=== PATIENT | female | born 1985 | race Caucasian/White ===

== ENCOUNTER 2019-09-06 18:12 | Emergency (ER) | payer OTHER, SELFPAY ==
--- NOTE | ~2019-09-06 | US_ITS ---
US OB <=14 wk fetus w TV DATE: 09/06/2019 19:56 INDICATION: Vaginal bleeding in gravid patient TECHNIQUE: Real time imaging and doppler analysis COMPARISON: None FINDINGS: The uterus measures 9.7 cm height, 5 cm AP dimension. There is a collection of soft tissue and fluid within the endometrial cavity in the uterine fundus, hyperechoic peripherally, with fluid more centrally. The peripheral echogenicity is heterogeneous and discontinuous. No normal pole is detected nor any heart beat. There is a complicated approximately 6.3 x 8 mm cystic area in the uterine cervix. The constellation of findings suggests a failed intrauterine gestation and an in process. Ovaries and adnexal areas are unremarkable. No pelvic free fluid collection. IMPRESSION: Impending is suggested. Recommend correlation with hCG levels and possible follo w-up ultrasound as clinically appropriate. Reviewed, dictated and finalized at [facility]. Reviewed, dictated and finalized at [facility]. IMPRESSION: Impending is suggested. Recommend correlation with hCG lev els and possible follow-up ultrasound as clinically appropriate.
[2019-09-06 18:14] VITALS: BP 115/55; PULSE 108; RESP 20; TEMP 36.5; O2SAT 100
--- NOTE | 2019-09-06 18:28 | ED.FEMALEGU ---
HPI - Female Genitourinary General Chief complaint: Vaginal Bleeding Stated complaint: 6WKS PREG VAG BLEEDING Time Seen by Provider: 09/06/19 18:20 Source: patient and RN notes reviewed Mode of arrival: ambulatory Limitations: no limitations History of Present Illness HPI Narrative: A 34 y/o female, who is A0 and is also 6 weeks gravid, presents to the ED with vaginal bleeding beginning earlier today. She reports that she first developed suprapubic ABD cramping earlier today before she started to have vaginal bleeding. She states that her LNMP started on 07/22/19 and that she had a positive at home a couple weeks ago. She notes that her OBGYN is Dr. Melendrez but denies seeing them yet during this . She denies any N/V/D or fevers. MD elicited complaint: vaginal bleeding Onset (ago): hour(s) (earlier today) Location of symptoms: vaginal Female Urogenital Radiation: Suprapubic Quality of pain: cramping Associated symptoms: denies other symptoms Patient : Yes Possible : at home test positive Date of Last Menstrual Period: 07/22/19 Related Data : 3 Para: 2 Total number of abortions (spontaneous and elective): 0 Home Medications Medication Instructions Recorded Confirmed PNV cmb#95-ferrous fumarate-FA 1 tablet PO DAILY 09/06/19 [] Allergies Allergy/AdvReac Type Severity Reaction Status Date / Time Cephalosporins Allergy Mild Hives Unverified 09/06/19 18:24 adhesive tape Allergy Unknown Blister Verified 09/06/19 18:24 amoxicillin Allergy Unknown Hives Verified 09/06/19 18:24 cefaclor Allergy Unknown Hives Verified 09/06/19 18:24 Penicillins Allergy Unknown Hives Verified 09/06/19 18:24 Review of Systems Review of Systems: All systems reviewed & are unremarkable except as noted in HPI and below Constitutional: Constitutional: Denies fever(s) Gastrointestinal: Gastrointestinal: Reports GI cramping (suprapubic), Denies diarrhea, Denies nausea and Denies vomiting Genitourinary: Genitourinary: Reports abnormal vaginal bleeding PMF Past Medical History Medical History (Updated 09/06/19 @ 21:20 by Alee Sanders MD) Crohn's disease Hx of ulcerative colitis Surgical History Surgical History (Updated 09/06/19 @ 19:06 by Des Khan) Previous section x2. Family History Family History (Updated 01/21/16 @ 23:19 by DOCTOR UNKNOWN) Father Family history of elevated blood lipids Family history of diabetes mellitus in first degree relative Hypertension Mother Family history of elevated blood lipids Family history of malignant neoplasm of cervix Family history of diabetes mellitus in first degree relative Sibling Family history of elevated blood lipids Family history of diabetes mellitus in first degree relative Grandparent Cerebrovascular accident Family history of coronary artery disease Family history of aortic aneurysm Other Family history of malignant neoplasm of ovary Social History Social History (Updated 09/06/19 @ 19:03 by Des Khan) Smoking status: Never smoker Second hand tobacco smoke exposure: Yes Alcohol intake: never Exam Const: General: cooperative, no acute distress and alert Nutritional Appearance: well nourished Orientation/consciousness: patient oriented x3 Limitations: no limitations HENMT: Mouth: Yes lip normal and Yes moist mucous membranes Resp: Effort & Inspection: normal respiratory effort Auscultation: clear to auscultation bilaterally Cardio: Rate: regular rate Rhythm: regular rhythm GI: GI Palp: Yes Soft to palpation and Yes Tenderness to palpation present (GI) (suprapubic) Auscultation: normal bowel sounds : Speculum Exam - Vagina: normal appearance of the vagina, No vaginal bleeding and No tissue present in vagina Speculum Exam - Cervix: Cervical os closed Skin: General skin exam: normal color Neuro: General: patient oriented x3 Cognition (Neuro): normal cognition Sp
[2019-09-06 18:52] LABS: Basophils Absolute Auto 0.1 K/mm3 (0.0-0.1); Basophils Percent Auto 0.5 % (0.2-1.2); Eosinophils Absolute Auto 0.2 K/mm3 (0-0.3); Eosinophils Percent Auto 1.3 % (0-4.4); Hematocrit 44.5 % (37.0-47.0); Hemoglobin 15.2 g/dL (12.0-15.0); Immature Granulocyte Absolute 0.06 K/mm3 (0.00-0.031); Immature Granulocyte Percent A 0.5 % (0-0.5); Lymphocytes Absolute Auto 2.82 K/mm3 (0.9-3.2); Lymphocytes Percent Auto 23.7 % (18.3-44.2); Mean Corpuscular HGB Conc 34.2 g/dl (32-36); Mean Corpuscular Hemoglobin 32.2 pg (26-34); Mean Corpuscular Volume 94.3 fl (80-100); Mean Platelet Volume 9.2 fl (7.4-10.4); Monocytes Absolute Auto 0.8 K/mm3 (0.1-0.6); Monocytes Percent Auto 6.9 % (2.6-8.5); Neutrophils Percent Auto 67.1 % (45.5-73.1); Platelet Count Result 315 k/mm3 (150-375); Red Blood Count 4.72 M/mm3 (4.2-5.4); Red Cell Distribution Width 11.6 % (11.5-14.5); White Blood Count 11.9 K/mm3 (4.5-10.0)
[2019-09-06 21:31] VITALS: BP 112/60; PULSE 95; RESP 16; O2SAT 98
== END 2019-09-06 21:33 | disposition home or self-care (01) ==
PROVIDERS: Emergency Provider Emergency Medicine; PCP Family Medicine
DX: O03.4 Incomplete spontaneous abortion without complication (principal); K50.90 Crohn's disease, unspecified, without complications
CPT/HCPCS: 36415; 76801; 76817; 81025; 84702; 85025; 99284

== ENCOUNTER 2019-09-08 16:32 | Outpatient (RCR) | payer OTHER, SELFPAY | END 2019-12-07 23:59 | disposition home or self-care (01) | LOC: ANHLAB 16:32 | PROVIDERS: PCP Family Medicine; Visit Provider Obstetrics & Gynecology | DX: O20.0 Threatened abortion (principal); Z3A.00 Weeks of gestation of pregnancy not specified | CPT/HCPCS: 36415; 84702 ==

== ENCOUNTER 2019-10-16 10:51 | Outpatient (CLI) | payer OTHER, SELFPAY ==
--- NOTE | ~2019-10-16 | US_ITS ---
EXAMINATION: US OB <=14 wk fetus w TV DATE: 10/16/2019 11:50 INDICATION: Threatened miscarriage during of indeterminate dating. TECHNIQUE: Real-time pelvic ultrasound utilizing both a transvaginal and transabdominal probe was pe rformed. The interpreting radiologist was not present for the study. COMPARISON: 09/06/2019 FINDINGS: The uterus measures 14.7 x 11.2 x 12.3 cm. There is marked thickening of the endometrial complex. Th ere is a 6.6 x 2.7 x 3.9 cm anechoic fluid collection within the endometrial complex with irregular m argins, with a few internal thin linear septations but no discernible pole. The ovaries are not visualized. There is no free fluid in the pelvis. IMPRESSION: 1. Markedly thickened endometrial complex with interval increase in size of an endometrial fluid hazel ection with linear internal septations but no discernible pole. Differential includes a portion progress, retained products of conception from earlier failed or ectopic . Recomm end correlation with serial beta-hCG levels. Reviewed, dictated and finalized at [facility]. IMPRESSION: 1. Markedly thickened endometrial complex with interval increase in size of an endometrial fluid collection with linear internal septations but no discernible pole. Differential includes a portion progress, retained products of con ception from earlier failed or ectopic . Recommend correlati on with serial beta-hCG levels.
== END 2019-10-16 10:52 | disposition home or self-care (01) ==
LOC: ANHIMG 10:56
PROVIDERS: PCP Family Medicine; Visit Provider Obstetrics & Gynecology
DX: O20.0 Threatened abortion (principal)
CPT/HCPCS: 76801; 76817

== ENCOUNTER 2019-10-20 00:28 | Day surgery (SDC) | payer OTHER, SELFPAY ==
[2019-10-20] MEDS: LACTATED RINGERS 1,000 ML 30 ML IV CONT ×2 (07:25→09:23)
--- NOTE | 2019-10-20 07:25 | WPDANESEPPF ---
Anes - Initial Pre Proc Eval Procedure: Operation Date: 10/20/19 08:30 Proposed Procedures p Suction Dilation And Curettage - Benedicto Melendrez MD Date/Time: 10/20/19 07:25 Surgeon: Benedicto Meelndrez MD Pre Op Diagnosis: Missed AB Patient Data Age: 34 Gender: F Height: Weight: Allergies Allergy/AdvReac Type Severity Reaction Status Date / Time Cephalosporins Allergy Mild Hives Unverified 09/06/19 18:24 adhesive tape Allergy Unknown Blister Verified 09/06/19 18:24 amoxicillin Allergy Unknown Hives Verified 09/06/19 18:24 cefaclor Allergy Unknown Hives Verified 09/06/19 18:24 Penicillins Allergy Unknown Hives Verified 09/06/19 18:24 Home Medications Medication Instructions Recorded Confirmed Type PNV cmb#95-ferrous fumarate-FA 1 tablet PO DAILY 09/06/19 10/17/19 History [] Patient hx anesthesia problems: none Family hx anesthesia problems: none PMFSH Past Medical History Medical History Crohn's disease Hx of ulcerative colitis Surgical History Surgical History Previous section x2. Family History Family History Father Family history of elevated blood lipids Family history of diabetes mellitus in first degree relative Hypertension Mother Family history of elevated blood lipids Family history of malignant neoplasm of cervix Family history of diabetes mellitus in first degree relative Sibling Family history of elevated blood lipids Family history of diabetes mellitus in first degree relative Grandparent Cerebrovascular accident Family history of coronary artery disease Family history of aortic aneurysm Other Family history of malignant neoplasm of ovary Social History Social History Smoking status: Never smoker Second hand tobacco smoke exposure: Yes Alcohol intake: never Anes - Eval Final PreProcedure Day of Procedure 10/20/19 07:25 Patient weight: normal Heart: regular rate and rhythm Lungs: clear to auscultation Airway: Mallampati scale class II Neurological: alert and oriented Last oral intake: >/= 8 hours ASA classification: III Emergent: no Anesthetic plan: proceed Anesthesia type and monitoring: general GIVS and standard monitoring Informed Consent: The patient's anesthetic plan and its attendant risks and benefits were discussed with the patient/family/POA. Questions were solicited and answers provided to the satisfaction of the patient/family/POA.
[2019-10-20 07:30] VITALS: BP 105/47; PULSE 85; RESP 17; TEMP 37.3; O2SAT 100
--- NOTE | 2019-10-20 07:30 | PM.IMHP ---
H&P: HPI History of Present Illness Chief complaint: Missed AB Narrative: Katharine Ortega is a 34 year old female presents with ultrasound showing no growth the past 2 weeks also with some moderate amount bleeding cramping. Presents for suction curettage due to failed l . PMFSH Past Medical History Medical History Crohn's disease Hx of ulcerative colitis Surgical History Surgical History Previous section x2. Family History Family History Father Family history of elevated blood lipids Family history of diabetes mellitus in first degree relative Hypertension Mother Family history of elevated blood lipids Family history of malignant neoplasm of cervix Family history of diabetes mellitus in first degree relative Sibling Family history of elevated blood lipids Family history of diabetes mellitus in first degree relative Grandparent Cerebrovascular accident Family history of coronary artery disease Family history of aortic aneurysm Other Family history of malignant neoplasm of ovary Social History Social History Smoking status: Never smoker Second hand tobacco smoke exposure: Yes Alcohol intake: never Meds Home Medications and Allergies Home Medications Medication Instructions Recorded Confirmed Type PNV cmb#95-ferrous fumarate-FA 1 tablet PO DAILY 09/06/19 10/17/19 History [] Allergies Allergy/AdvReac Type Severity Reaction Status Date / Time Cephalosporins Allergy Mild Hives Unverified 09/06/19 18:24 adhesive tape Allergy Unknown Blister Verified 09/06/19 18:24 amoxicillin Allergy Unknown Hives Verified 09/06/19 18:24 cefaclor Allergy Unknown Hives Verified 09/06/19 18:24 Penicillins Allergy Unknown Hives Verified 09/06/19 18:24 Exam Const: General: no acute distress Resp: Auscultation: clear to auscultation bilaterally Cardio: Rate: regular rate Rhythm: regular rhythm GI: GI Palp: Yes Soft to palpation : Other: Bimanual exam reveals uterus 6-8 week size. Assessment and Plan Assessment and plan (1) Missed : Code(s): O02.1 - Missed Status: Acute Additional Plan Proceed with suction curettage.
[2019-10-20] MEDS: KETOROLAC 30 MG/ML VIAL (*BKC) IV PUSH (08:52)
--- NOTE | 2019-10-20 08:56 | PM.OP ---
Procedure Note - Brief Procedure Note - Brief Date of procedure: 10/20/19 Pre-op diagnosis: Missed AB Post-op diagnosis: same Procedure performed: Section curettage Description of procedure: Patient prepped in usual manner for this procedure cervix is dilated to allow from 9mm curette to be placed uterus was sounded to 10cm suction curette was then performed with moderate amount of products conception. Sharp curette throughout with no significant tissue. Care suction curette was placed again with small amount of bleeding. This point seizure was considered terminated was no significant bleeding. Anesthesia: GLMA Surgeon: Benedicto Melendrez MD Estimated blood loss (mL): 550 (With products of conception) Drains: No Packing: No Pathology: yes Complications: No immediate complications Condition: stable Disposition: PACU Findings: Moderate amount products of conception.
[2019-10-20 09:02] VITALS: BP 100/63; PULSE 78; RESP 16; TEMP 36.6; O2SAT 100
[2019-10-20 09:30] VITALS: BP 104/67; PULSE 70; RESP 18; O2SAT 100
[2019-10-20] MEDS: ONDANSETRON INJ 4 MG/2 ML VIAL IV PUSH (09:31)
[2019-10-20 10:00] VITALS: BP 106/72; PULSE 68; RESP 18
--- NOTE | 2019-10-20 10:03 | SUR.PHASEII ---
1000- REPEAT RHOGAM SCREENING DRAWN AND SENT TO LAB. PREVIOUS SPECIMEN HEMOLYZED.
[2019-10-20 10:30] VITALS: BP 99/62; PULSE 71; RESP 18
[2019-10-20 11:00] VITALS: BP 107/49; PULSE 67; RESP 18
== END 2019-10-20 11:10 | disposition home or self-care (01) ==
PROVIDERS: PCP Family Medicine; Visit Provider Obstetrics & Gynecology
PROC: (CPT 59820; principal; 2019-10-20 08:30)
DX: O02.1 Missed abortion (principal); K50.90 Crohn's disease, unspecified, without complications
CPT/HCPCS: 59820; 36415; 85461; 88305; A9270; J1885; J2001; J2250; J2405; J2704; J3010; J7120

== ENCOUNTER 2019-10-27 12:16 | Outpatient (RCR) | payer OTHER, SELFPAY | END 2020-01-25 23:59 | disposition home or self-care (01) | LOC: ANHLAB 12:16 | PROVIDERS: PCP Family Medicine; Visit Provider Obstetrics & Gynecology | DX: O02.0 Blighted ovum and nonhydatidiform mole (principal); Z3A.00 Weeks of gestation of pregnancy not specified | CPT/HCPCS: 36415; 84702 ==

== ENCOUNTER 2020-09-03 13:29 | Emergency (ER) | payer OTHER, SELFPAY ==
[2020-09-03 13:35] VITALS: BP 119/50; PULSE 93; RESP 16; TEMP 36.8; O2SAT 100
--- NOTE | 2020-09-03 13:46 | ED.DENTAL ---
HPI - Dental/Oral General Chief complaint: Dental/Oral Stated complaint: toothache Time Seen by Provider: 09/03/20 13:37 Source: patient and RN notes reviewed Mode of arrival: ambulatory Limitations: no limitations History of Present Illness HPI Narrative: Patient presents today complaining of right lower dental pain x2 days that has been worsening since onset. Associated symptoms include heat and cold sensitivity. Denies fever, facial swelling, shortness of breath, or difficulty swallowing. Currently rates her pain 7/10 and has been taking Tylenol with mild relief. Patient already has a lower bridge and states that she knows she needs an oral surgeon to remove most of her lower teeth. Reports gross dental decay due to long-term steroid use due to ulcerative colitis and Crohn's disease. Denies recent antibiotic use. MD Complaint: tooth pain Related Data Allergies Allergy/AdvReac Type Severity Reaction Status Date / Time Cephalosporins Allergy Mild Hives Verified 09/03/20 13:32 adhesive tape Allergy Unknown Blister Verified 09/03/20 13:32 amoxicillin Allergy Unknown Hives Verified 09/03/20 13:32 cefaclor Allergy Unknown Hives Verified 09/03/20 13:32 Penicillins Allergy Unknown Hives Verified 09/03/20 13:32 Review of Systems Review of Systems: Narrative: CONSTITUTIONAL: Denies body aches, fever, chills, or sweats. EYES: Denies visual changes, redness, or discharge. ENT: Denies rhinorrhea, congestion, sore throat, or otalgia + dental pain. CARDIOVASCULAR: Denies chest pain, palpitations, or edema. RESPIRATORY: Denies cough or dyspnea. GASTROINTESTINAL: Denies abdominal pain, nausea, vomiting, or diarrhea. GENITOURINARY: Denies dysuria or hematuria. SKIN: Denies rash, itching, or wounds. MUSCULOSKELETAL: Denies back pain, joint pain, or myalgia. NEUROLOGIC: Denies headache, numbness, tingling, or weakness. PSYCH: Denies depression or anxiety. [facility] Past Medical History Medical History (Updated 09/03/20 @ 13:49 by Jana Bourne, [facility], ) Crohn's disease Hx of ulcerative colitis Surgical History Surgical History Previous section x2. Family History Family History Father Family history of elevated blood lipids Family history of diabetes mellitus in first degree relative Hypertension Mother Family history of elevated blood lipids Family history of malignant neoplasm of cervix Family history of diabetes mellitus in first degree relative Sibling Family history of elevated blood lipids Family history of diabetes mellitus in first degree relative Grandparent Cerebrovascular accident Family history of coronary artery disease Family history of aortic aneurysm Other Family history of malignant neoplasm of ovary Social History Social History Smoking status: Never smoker Second hand tobacco smoke exposure: Yes Alcohol intake: never Comments At time of signature, I have reviewed and agree with nursing past medical, surgical, social and family history unless otherwise noted. Please see nursing chart for further information. There is no relevant family history pertinent to the presenting complaint Exam Narrative: Exam Narrative: GENERAL: Well-appearing, well-nourished, and in no acute distress. HEAD: Normocephalic, atraumatic. EYES: EOMI. No redness or drainage. Conjunctivae normal. ENT: Mucous membranes pink and moist. Throat normal.Gross dental decay throughout the mouth. Patient localizes pain adjacent to teeth 25 through 27. No obvious periapical abscess. No erythema or swelling of the gumline. Teeth are brown in color and decayed. Uvula midline. NECK: Normal AROM. Supple. No lymphadenopathy. CHEST: No respiratory distress. EXTREMITIES: Normal range of motion. No edema. SKIN: Warm, dry, no rash. Capillary refill
== END 2020-09-03 13:50 | disposition home or self-care (01) ==
PROVIDERS: Emergency Provider Nurse Practitioner
DX: K08.89 Other specified disorders of teeth and supporting structures (principal); K50.90 Crohn's disease, unspecified, without complications
CPT/HCPCS: 99213; G0463

== ENCOUNTER 2020-09-26 12:43 | Emergency (ER) | payer OTHER, SELFPAY ==
[2020-09-26 12:54] VITALS: BP 119/66; PULSE 96; RESP 18; TEMP 37; O2SAT 99
--- NOTE | 2020-09-26 13:05 | ED.DENTAL ---
HPI - Dental/Oral General Chief complaint: Dental/Oral Stated complaint: Tooth Pain Time Seen by Provider: 09/26/20 12:54 Source: patient, RN notes reviewed and old records reviewed Mode of arrival: ambulatory Limitations: no limitations History of Present Illness HPI Narrative: Patient presents today complaining of right lower dental pain x2 days. Patient was seen for same complaint at this urgent care on 09/03/2020. She was given a 10-day course of clindamycin at that time. States symptoms resolved for a couple of days during treatment, but then returned again. States she is waiting on her insurance to approve her to be admitted to the hospital for extraction of most of her teeth by an oral surgeon. She currently rates her pain 10 and has been taking Tylenol. Her last dose was at 1030 this morning. History of ulcerative colitis and Crohn's disease. Denies fever, shortness of breath, or difficulty swallowing. MD Complaint: tooth pain Related Data Allergies Allergy/AdvReac Type Severity Reaction Status Date / Time Cephalosporins Allergy Mild Hives Verified 09/26/20 12:51 adhesive tape Allergy Unknown Blister Verified 09/26/20 12:51 amoxicillin Allergy Unknown Hives Verified 09/26/20 12:51 cefaclor Allergy Unknown Hives Verified 09/26/20 12:51 Penicillins Allergy Unknown Hives Verified 09/26/20 12:51 Review of Systems Review of Systems: Narrative: CONSTITUTIONAL: Denies body aches, fever, chills, or sweats. EYES: Denies visual changes, redness, or discharge. ENT: Denies rhinorrhea, congestion, sore throat, or otalgia.+ Tooth pain CARDIOVASCULAR: Denies chest pain, palpitations, or edema. RESPIRATORY: Denies cough or dyspnea. GASTROINTESTINAL: Denies abdominal pain, nausea, vomiting, or diarrhea. GENITOURINARY: Denies dysuria or hematuria. SKIN: Denies rash, itching, or wounds. MUSCULOSKELETAL: Denies back pain, joint pain, or myalgia. NEUROLOGIC: Denies headache, numbness, tingling, or weakness. PSYCH: Denies depression or anxiety. [facility] Past Medical History Medical History (Updated 09/26/20 @ 13:23 by Jana Bourne, [employer], ) Crohn's disease Endometriosis History of anemia History of bulimia History of ovarian cyst History of pancreatitis History of rib fracture Hx of ulcerative colitis Surgical History Surgical History (Updated 09/26/20 @ 13:23 by Jana Bourne, [facility], ) History of appendectomy History of cholecystectomy Previous section x2. Family History Family History Father Family history of elevated blood lipids Family history of diabetes mellitus in first degree relative Hypertension Mother Family history of elevated blood lipids Family history of malignant neoplasm of cervix Family history of diabetes mellitus in first degree relative Sibling Family history of elevated blood lipids Family history of diabetes mellitus in first degree relative Grandparent Cerebrovascular accident Family history of coronary artery disease Family history of aortic aneurysm Other Family history of malignant neoplasm of ovary Social History Social History Smoking status: Never smoker Second hand tobacco smoke exposure: Yes Alcohol intake: never Gender identity (if verbalized by the patient): Female Exam Narrative: Exam Narrative: GENERAL: Well-appearing, well-nourished, and in no acute distress. HEAD: Normocephalic, atraumatic. EYES: EOMI. No redness or drainage. Conjunctivae normal. ENT: Mucous membranes pink and moist. Throat normal. Uvula midline. + Patient localizes pain to teeth 25 through 28. Gums adjacent are erythematous and mildly edematous. No obvious periapical abscess noted. Tender to palpation. Gross dental decay. Affected teeth are brown in color broken with pieces missing. No facial swelling noted. NECK: Normal AROM. Supple. No lymphadenopa
== END 2020-09-26 13:10 | disposition home or self-care (01) ==
PROVIDERS: Emergency Provider Nurse Practitioner
DX: K02.9 Dental caries, unspecified (principal); K50.90 Crohn's disease, unspecified, without complications; N80.9 Endometriosis, unspecified
CPT/HCPCS: 99213; G0463

== ENCOUNTER 2020-12-25 10:16 | Emergency (ER) | payer OTHER, SELFPAY ==
[2020-12-25 10:17] VITALS: BP 108/50; PULSE 94; RESP 20; TEMP 36.9; O2SAT 100
--- NOTE | 2020-12-25 11:12 | ED.DENTAL ---
HPI - Dental/Oral General Chief complaint: Dental/Oral Stated complaint: tooth pain Time Seen by Provider: 12/25/20 10:26 Source: patient, family and RN notes reviewed Mode of arrival: ambulatory Limitations: no limitations History of Present Illness HPI Narrative: Patient is a 35-year-old female who presents to emergency department for evaluation of dental pain for the last several days with gross dental caries patient denies any fever chills nausea vomiting patient notes multiple antibiotic allergies and is typically been treated with Zithromax in the past patient denies other complaints presents in no distress Related Data Allergies Allergy/AdvReac Type Severity Reaction Status Date / Time Cephalosporins Allergy Mild Hives Verified 12/25/20 10:23 adhesive tape Allergy Unknown Blister Verified 12/25/20 10:23 amoxicillin Allergy Unknown Hives Verified 12/25/20 10:23 cefaclor Allergy Unknown Hives Verified 12/25/20 10:23 Penicillins Allergy Unknown Hives Verified 12/25/20 10:23 Review of Systems Review of Systems: All systems reviewed & are unremarkable except as noted in HPI and below PMFSH Past Medical History Medical History Crohn's disease Endometriosis History of anemia History of bulimia History of ovarian cyst History of pancreatitis History of rib fracture Hx of ulcerative colitis Surgical History Surgical History History of appendectomy History of cholecystectomy Previous section x2. Family History Family History Father Family history of elevated blood lipids Family history of diabetes mellitus in first degree relative Hypertension Mother Family history of elevated blood lipids Family history of malignant neoplasm of cervix Family history of diabetes mellitus in first degree relative Sibling Family history of elevated blood lipids Family history of diabetes mellitus in first degree relative Grandparent Cerebrovascular accident Family history of coronary artery disease Family history of aortic aneurysm Other Family history of malignant neoplasm of ovary Social History Social History Smoking status: Never smoker Second hand tobacco smoke exposure: Yes Alcohol intake: never Gender identity (if verbalized by the patient): Female Exam Narrative: Exam Narrative: GENERAL: Well-appearing, well-nourished, and in no acute distress. HEAD: Normocephalic, atraumatic. EYES: PERRLA and EOMI. ENT: Nares clear, no rhinorrhea or epistaxis. Mucous membranes moist. Gross dental caries no space-occupying lesions floor the mouth is soft uvula is midline NECK: Supple. No adenopathy or masses. No carotid bruits or JVD CHEST: Clear to auscultation. No respiratory distress. No wheezes rales or rhonchi HEART: Regular rate and rhythm. No murmur heard. EXTREMITIES: Normal range of motion. No edema. SKIN: Warm, dry, no rash. NEURO: No focal deficits. Alert and oriented x3. PSYCH: Normal mood and affect. Course Course Emergency Course: Patient presented with dental pain with history of gross dental caries and diffuse dental disease patient will be referred to dentistry and treated with medications for symptoms provided with reasons to return Vital Signs Vital signs: Vital Signs Temperature 98.4 F 12/25/20 10:17 Pulse Rate 94 12/25/20 10:17 Respiratory Rate 20 12/25/20 10:17 Blood Pressure 108/50 L 12/25/20 10:17 Pulse Oximetry 100 12/25/20 10:17 Temperature 98.4 F 12/25/20 10:17 Pulse Rate 94 12/25/20 10:17 Respiratory Rate 20 12/25/20 10:17 Blood Pressure 108/50 L 12/25/20 10:17 Pulse Oximetry 100 12/25/20 10:17 MDM - Dental/Oral MDM Narrative Medical decision making narrative: Paitents pain and complaint coupled with physi
== END 2020-12-25 11:26 | disposition home or self-care (01) ==
PROVIDERS: Emergency Provider Emergency Medicine
DX: K02.9 Dental caries, unspecified (principal); K04.7 Periapical abscess without sinus
CPT/HCPCS: 99283

== ENCOUNTER 2020-12-26 08:04 | Emergency (ER) | payer OTHER, SELFPAY ==
[2020-12-26 08:13] VITALS: BP 108/82; PULSE 97; RESP 20; TEMP 36.8; O2SAT 99
--- NOTE | 2020-12-26 08:37 | ED.DENTAL ---
HPI - Dental/Oral General Chief complaint: Dental/Oral Stated complaint: dental pain Time Seen by Provider: 12/26/20 08:06 Source: patient Mode of arrival: ambulatory Limitations: no limitations History of Present Illness HPI Narrative: Patient is a 35-year-old female complaining of dental pain, right premolar, accompanied by swelling. Patient was seen here yesterday and was prescribed Zithromax, but states that the swelling has increased. Patient denies any dysphagia, lip or tongue swelling, throat swelling, fever or chills. Related Data Allergies Allergy/AdvReac Type Severity Reaction Status Date / Time Cephalosporins Allergy Mild Hives Verified 12/26/20 08:12 adhesive tape Allergy Unknown Blister Verified 12/26/20 08:12 amoxicillin Allergy Unknown Hives Verified 12/26/20 08:12 cefaclor Allergy Unknown Hives Verified 12/26/20 08:12 Penicillins Allergy Unknown Hives Verified 12/26/20 08:12 Review of Systems Review of Systems: All systems reviewed & are unremarkable except as noted in HPI and below PMFSH Past Medical History Medical History Crohn's disease Endometriosis History of anemia History of bulimia History of ovarian cyst History of pancreatitis History of rib fracture Hx of ulcerative colitis Surgical History Surgical History History of appendectomy History of cholecystectomy Previous section x2. Family History Family History Father Family history of elevated blood lipids Family history of diabetes mellitus in first degree relative Hypertension Mother Family history of elevated blood lipids Family history of malignant neoplasm of cervix Family history of diabetes mellitus in first degree relative Sibling Family history of elevated blood lipids Family history of diabetes mellitus in first degree relative Grandparent Cerebrovascular accident Family history of coronary artery disease Family history of aortic aneurysm Other Family history of malignant neoplasm of ovary Social History Social History Smoking status: Never smoker Second hand tobacco smoke exposure: Yes Alcohol intake: never Gender identity (if verbalized by the patient): Female Exam Const: General: no acute distress and alert Orientation/consciousness: patient oriented x3 HENMT: Ears: external ears normal General nose exam: Normal nares present Mouth: Yes moist mucous membranes Other: Diffuse dental caries, decay Positive for dental abscess, right lower premolar Patent airway Clear oropharyngeal area Eyes: Conjunctivae: conjunctivae normal Course Vital Signs Vital signs: Vital Signs Temperature 36.8 C 12/26/20 08:13 Pulse Rate 97 12/26/20 08:13 Respiratory Rate 20 12/26/20 08:13 Blood Pressure 108/82 12/26/20 08:13 Pulse Oximetry 99 12/26/20 08:13 Temperature 36.8 C 12/26/20 08:13 Pulse Rate 97 12/26/20 08:13 Respiratory Rate 20 12/26/20 08:13 Blood Pressure 108/82 12/26/20 08:13 Pulse Oximetry 99 12/26/20 08:13 MDM - Dental/Oral Differential Diagnosis Differential diagnosis: Likely gingival abscess, dental caries, toothache, dental abscess and fracture of tooth Discharge Plan Discharge Clinical Impression: Dental abscess, Dental caries Patient Disposition: Home, Self-Care Condition: Stable Instructions: Antibiotic Form, Dental Abscess (ED) Additional Instructions: Follow-up with a dentist in 1 to 2 days Prescriptions: New clindamycin HCl 300 mg capsule 300 mg PO Q8H Qty: 21 RF: 0 No Action azithromycin [Zithromax Z-Edy] 250 mg tablet See Rx Instructions .ROUTE .COMPLEX Qty: 6 RF: 0 chlorhexidine gluconate [Peridex] 0.12 % mouthwash 15 ml buccal BID Qty: 1500 RF: 0 hydrocodone-acetamin
[2020-12-26] MEDS: KETOROLAC 30 MG/ML VIAL (*BKC) IM (09:00)
[2020-12-26] MEDS: HYDROcodone/acetaminophen (*CRX) 5-325 MG TABLET 1 TAB PO (09:00)
[2020-12-26 09:10] VITALS: BP 110/80; PULSE 80; RESP 20; O2SAT 99
[2020-12-26] MEDS: ONDANSETRON HCL ODT 4 MG TABLET (09:25)
== END 2020-12-26 09:20 | disposition home or self-care (01) ==
PROVIDERS: Emergency Provider Emergency Medicine
DX: K04.7 Periapical abscess without sinus (principal); K02.9 Dental caries, unspecified
CPT/HCPCS: 96372; 99283; A9270; J1885

== ENCOUNTER 2020-12-27 16:23 | Emergency (ER) | payer OTHER, SELFPAY ==
--- NOTE | ~2020-12-27 | CT_ITS ---
EXAMINATION: CT facial bones w con EXAM DATE: 12/27/2020 22:22 INDICATION: Right facial pain and swelling. TECHNIQUE: Spiral CT of the facial bones was acquired in the axial plane following intravenous inject ion of 75 mL Omnipaque 350. Coronal reformatted images were also reviewed. The dose-length product (DLP) for this examination was 238.58 mGy-cm. The exposure was tailored according to patient size, a nd iterative reconstruction (ASIR) was used as additional dose reduction technique. There is no prio r study for comparison. FINDINGS: There is a 1.2 cm mass in the right suprasellar region with some calcifications some of whi ch are central and some peripheral. Differential diagnosis includes right ICA aneurysm, meningioma, o ther infundibular mass. Recommend follow-up nonemergent MRA for further evaluation. MRI brain would a lso be appropriate. Multiple dental cavities. There is lucency surrounding several mandibular, lower teeth roots (could b e teeth 22 and 27). There is a thin fluid density region along the right superficial aspect of the ma ndible measuring up to 5 mm in thickness by 2.5 cm in AP dimension, could be a small odontogenic absc ess. There is extensive swelling over the right side of the face. IMPRESSION: 1. Right suprasellar 1.2 cm mass. Differential diagnosis includes right distal ICA aneurysm, meningi ce, other infundibular mass. Recommend MRA brain as initial step in evaluation. MRI brain without an d with contrast would also be appropriate. 2. Dental cavities with small abscess suspected along the right superficial aspect of the mandible. Right facial swelling. Reviewed, dictated and finalized at location G. IMPRESSION: 1. Right suprasellar 1.2 cm mass. Differential diagnosis includes right distal ICA aneurysm, meningioma, other infundibular mass. Recommend MRA brain as init ial step in evaluation. MRI brain without and with contrast would also be appro priate. 2. Dental cavities with small abscess suspected along the right superficial as pect of the mandible. Right facial swelling.
[2020-12-27 16:43] VITALS: BP 126/50; PULSE 0; RESP 20; TEMP 37.5; O2SAT 99
[2020-12-27 19:51] VITALS: BP 107/52; PULSE 84; RESP 14; TEMP 36.9; O2SAT 99
--- NOTE | 2020-12-27 21:21 | PC.NURSE ---
Pt has called out multiple time to staff, states that she feels she might need to be hospitalized because the swelling and the rash is so bad. signal maintainer helper made aware that pt has called multiple times. Pt made aware of busy department.
--- NOTE | 2020-12-27 22:12 | PC.NURSE ---
IV initiated. Pt to CT via stretcher.
[2020-12-27 22:17] LABS: Basophils Percent Auto 0.3 % (0.2-1.2); Eosinophils Absolute Auto 0.1 K/mm3 (0-0.3); Eosinophils Percent Auto 0.6 % (0-4.4); Hematocrit 42.7 % (37.0-47.0); Hemoglobin 14.3 g/dL (12.0-15.0); Immature Granulocyte Absolute 0.06 K/mm3 (0.00-0.031); Immature Granulocyte Percent A 0.4 % (0-0.5); Lymphocytes Absolute Auto 2.13 K/mm3 (0.9-3.2); Lymphocytes Percent Auto 13.4 % (18.3-44.2); Mean Corpuscular HGB Conc 33.5 g/dl (32-36); Mean Corpuscular Hemoglobin 32.3 pg (26-34); Mean Corpuscular Volume 96.4 fl (80-100); Mean Platelet Volume 9.1 fl (7.4-10.4); Monocytes Percent Auto 6.5 % (2.6-8.5); Neutrophils Absolute Auto 12.6 K/mm3 (1.3-6.7); Neutrophils Percent Auto 78.8 % (45.5-73.1); Platelet Count Result 346 k/mm3 (150-375); Red Blood Count 4.43 M/mm3 (4.2-5.4); Red Cell Distribution Width 12.3 % (11.5-14.5); White Blood Count 15.9 K/mm3 (4.5-10.0)
[2020-12-27 22:19] LABS: Estimated CRCL calculation 78 ml/min; Estimated Glomerular Filt Rate > 60
[2020-12-27 22:27] LABS: Alanine Aminotransferase 197 U/L (4-35); Albumin Level 4.7 g/dL (3.5-5.1); Alkaline Phosphatase 120 U/L (38-126); Anion Gap 10 mmol/L (8-16); Aspartate Amino Transferase 80 U/L (14-36); Bilirubin,Total 0.6 mg/dL (0.2-1.3); Blood Urea Nitrogen 7 mg/dL (7-17); Calcium 9.5 mg/dL (8.4-10.2); Carbon Dioxide 22 mmol/L (22-30); Chloride 105 mmol/L (98-107); Estimated CRCL calculation 90 ml/min; Estimated Glomerular Filt Rate > 60; Glucose 92 mg/dL (65-105); Potassium 4.3 mmol/L (3.4-5.0); Sodium 137 mmol/L (137-145)
[2020-12-27] MEDS: MORPHINE SULFATE (*CRX) 4 MG/ML INJ IV PUSH (22:42)
[2020-12-27] MEDS: SODIUM CHLORIDE 0.9% IV 1,000 ML 999 ML IV CONT (22:42)
[2020-12-27] MEDS: CLINDAMYCIN 600 MG/D5W 50 ML 600 MG/50 ML PIGGYBACK 100 MG IVPB (22:43)
[2020-12-27 22:54] LABS: Lactic Acid Reflex 0.9 mmol/L (0.7-2.1)
--- NOTE | 2020-12-27 23:23 | ED.GENADULT ---
HPI - General Adult General Chief complaint: Dental/Oral Stated complaint: Tooth Ache Time Seen by Provider: 12/27/20 21:33 History of Present Illness HPI narrative: Patient 35-year-old female who presents emerged from with chief complaint of right mandible swelling. Patient reports that she has been seen several times in the emergency department and is on oral clindamycin currently and reports that the area is continued to get worsening swelling and reports that she has some redness of that area and into her neck. Patient states that she has not had any fevers reports that she has not seen a dentist and reports she has multiple carious teeth. Related Data Allergies Allergy/AdvReac Type Severity Reaction Status Date / Time Cephalosporins Allergy Mild Hives Verified 12/27/20 21:00 adhesive tape Allergy Unknown Blister Verified 12/27/20 21:00 amoxicillin Allergy Unknown Hives Verified 12/27/20 21:00 cefaclor Allergy Unknown Hives Verified 12/27/20 21:00 Penicillins Allergy Unknown Hives Verified 12/27/20 21:00 Review of Systems Review of Systems: Narrative: A 10 system review of systems was completed on the patient and is negative except for what is stated in the HPI. Nursing and ancillary documentation was reviewed. [facility] Past Medical History Medical History Crohn's disease Endometriosis History of anemia History of bulimia History of ovarian cyst History of pancreatitis History of rib fracture Hx of ulcerative colitis Surgical History Surgical History History of appendectomy History of cholecystectomy Previous section x2. Family History Family History Father Family history of elevated blood lipids Family history of diabetes mellitus in first degree relative Hypertension Mother Family history of elevated blood lipids Family history of malignant neoplasm of cervix Family history of diabetes mellitus in first degree relative Sibling Family history of elevated blood lipids Family history of diabetes mellitus in first degree relative Grandparent Cerebrovascular accident Family history of coronary artery disease Family history of aortic aneurysm Other Family history of malignant neoplasm of ovary Social History Social History Smoking status: Never smoker Second hand tobacco smoke exposure: Yes Alcohol intake: never Gender identity (if verbalized by the patient): Female Exam Narrative: Exam Narrative: GENERAL: Well-appearing, well-nourished, and in no acute distress. HEAD: Normocephalic, atraumatic. EYES: PERRLA and EOMI. ENT: Nares clear, no rhinorrhea or epistaxis. Mucous membranes moist. There is swelling present on the right lower mandible NECK: Supple. CHEST: Clear to auscultation. No respiratory distress. HEART: Regular rate and rhythm. No murmur heard. Normal peripheral pulses. ABDOMEN: Soft, nontender, nondistended, normal active bowel sounds. EXTREMITIES: Normal range of motion. No edema. SKIN: Warm, dry, no rash. NEURO: No focal deficits. Alert and oriented x3. PSYCH: Normal mood and affect. Course Course Emergency Course: The CT scan showed evidence of a abscess of the mandible. The case was discussed with Dr. Little who will see the patient tomorrow in the office. Incidentally there was an area on the CT that was concerning for a possible cerebral aneurysm the patient shows no evidence of symptoms patient was informed of this and recommended to follow-up for outpatient MRI Vital Signs Vital signs: Vital Signs Temperature 37.5 C 12/27/20 16:43 Pulse Rate 0 L 12/27/20 16:43 Respiratory Rate 20 12/27/20 16:43 Blood Pressure 126/50 L 12/27/20 16:43 Pulse Oximetry 99 12/27/20 16:43 Temperature 36.9 C
--- NOTE | 2020-12-27 23:29 | PC.NURSE ---
Report to KENNETH Granda, to continue care.
[2020-12-27] MEDS: HYDROcodone/acetaminophen (*CRX) 5-325 MG TABLET 2 TAB PO (23:41)
[2020-12-27 23:45] VITALS: BP 109/55; PULSE 80; RESP 14; O2SAT 100
== END 2020-12-27 23:45 | disposition home or self-care (01) ==
PROVIDERS: Emergency Provider Emergency Medicine
DX: K04.7 Periapical abscess without sinus (principal); K50.90 Crohn's disease, unspecified, without complications; N80.9 Endometriosis, unspecified; Z86.2 Personal history of diseases of the blood and blood-forming organs and certain disorders involving the immune mechanism
CPT/HCPCS: 36415; 70487; 80053; 83605; 85025; 87040; 96365; 96375; 99284; A9270; J2270; J7030; Q9967

== ENCOUNTER 2021-01-21 14:33 | Outpatient (CLI) | payer OTHER, SELFPAY ==
--- NOTE | ~2021-01-21 | MR_ITS ---
EXAMINATION: MR brain/brain stem wo/w con EXAM DATE: 01/21/2021 15:54 INDICATION: G93.89 - Other specified disorders of brain . Sella turcica mass. TECHNIQUE: Magnetic resonance imaging (MRI) of the brain/brain stem obtained without contrast. Sagit zev T1, axial diffusion, gradient echo (T2*), T1, T2, FLAIR sequences obtained. Patient was then inj ected with 10 cc intravenous Multihance contrast. Axial and coronal postcontrast T1 weighted sequence s obtained. Correlation is made to facial bone CT 12/27/2020. FINDINGS: There is a mass likely arising from the right side of the pituitary gland or infundibulum, bulging into the suprasellar region. This mass measures 6 x 10 x 13 mm, with infundibulum displaced t o the left, and touches the optic chiasm. No dural tails. Uncertain whether hyperdensity on prior CT was calcification or avid enhancement. 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 No other areas of abnormal enhancement. A few punctate white matter hyperintensities within normal li mits for patient's age. There are no areas of restricted diffusion to suggest acute infarction. Ther e is no acute hemorrhage seen on the T2*, a hemosiderin sensitive sequence. No intraparenchymal brai n mass. The ventricles are normal in size. There are no extra-axial collections. Flow voids are see n in the cerebral arteries on the T2-weighted sequences consistent with their expected patency. The orbits are unremarkable. Soft tissue is unremarkable. IMPRESSION: 1. 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 Consider 3-6 month follow-up brain MRI exam. 2. No aneurysm. Reviewed, dictated and finalized at location B. IMPRESSION: 1. 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 Consider 3-6 mon th follow-up brain MRI exam. 2. No aneurysm.
== END 2021-01-21 14:34 | disposition home or self-care (01) ==
LOC: ANHIMG 14:42
PROVIDERS: Visit Provider Family Medicine
DX: G93.89 Other specified disorders of brain (principal)
CPT/HCPCS: 70553; A9577

== ENCOUNTER 2021-02-16 13:38 | Outpatient (CLI) | payer OTHER, SELFPAY ==
[2021-02-16 13:57] LABS: Basophils Absolute Auto 0.1 K/mm3 (0.0-0.1); Basophils Percent Auto 0.8 % (0.2-1.2); Eosinophils Absolute Auto 0.2 K/mm3 (0-0.3); Eosinophils Percent Auto 2.8 % (0-4.4); Hematocrit 44.3 % (37.0-47.0); Hemoglobin 14.4 g/dL (12.0-15.0); Immature Granulocyte Absolute 0.03 K/mm3 (0.00-0.031); Immature Granulocyte Percent A 0.4 % (0-0.5); Lymphocytes Absolute Auto 1.94 K/mm3 (0.9-3.2); Lymphocytes Percent Auto 24.6 % (18.3-44.2); Mean Corpuscular HGB Conc 32.5 g/dl (32-36); Mean Corpuscular Hemoglobin 31.8 pg (26-34); Mean Corpuscular Volume 97.8 fl (80-100); Monocytes Absolute Auto 0.6 K/mm3 (0.1-0.6); Monocytes Percent Auto 7.3 % (2.6-8.5); Neutrophils Absolute Auto 5.1 K/mm3 (1.3-6.7); Neutrophils Percent Auto 64.1 % (45.5-73.1); Platelet Count Result 343 k/mm3 (150-375); Red Blood Count 4.53 M/mm3 (4.2-5.4); Red Cell Distribution Width 12.7 % (11.5-14.5); White Blood Count 7.9 K/mm3 (4.5-10.0)
[2021-02-16 14:11] LABS: Alanine Aminotransferase 17 U/L (4-35); Albumin Level 4.4 g/dL (3.5-5.1); Alkaline Phosphatase 53 U/L (38-126); Anion Gap 6 mmol/L (8-16); Aspartate Amino Transferase 24 U/L (14-36); Bilirubin,Total 0.6 mg/dL (0.2-1.3); Blood Urea Nitrogen 7 mg/dL (7-17); Calcium 9.3 mg/dL (8.4-10.2); Carbon Dioxide 24 mmol/L (22-30); Chloride 103 mmol/L (98-107); Estimated Glomerular Filt Rate > 60; Glucose 110 mg/dL (65-110); Potassium 4.2 mmol/L (3.4-5.0); Sodium 133 mmol/L (137-145)
== END 2021-02-16 13:39 | disposition home or self-care (01) ==
LOC: ANHLAB 13:40
PROVIDERS: Visit Provider Family Medicine
DX: R59.0 Localized enlarged lymph nodes (principal); R79.89 Other specified abnormal findings of blood chemistry
CPT/HCPCS: 36415; 80053; 85025

== ENCOUNTER 2021-12-06 14:06 | Outpatient (CLI) | payer OTHER, SELFPAY ==
[2021-12-06 14:50] LABS: Hematocrit 33.3 % (37.0-47.0); Hemoglobin 11.4 g/dL (12.0-15.0); Mean Corpuscular HGB Conc 34.2 g/dl (32-36); Mean Corpuscular Hemoglobin 31.7 pg (26-34); Mean Corpuscular Volume 92.5 fl (80-100); Mean Platelet Volume 10.5 fl (7.4-10.4); Platelet Count Result 225 k/mm3 (150-375); Red Cell Distribution Width 12.3 % (11.5-14.5); White Blood Count 9.3 K/mm3 (4.5-10.0)
[2021-12-07 12:51] LABS: Rapid Plasma Reagin Non-Reactive (NonReactive)
== END 2021-12-06 14:07 | disposition home or self-care (01) ==
LOC: ANHLAB 14:09
PROVIDERS: PCP Family Medicine; Visit Provider Obstetrics & Gynecology
DX: Z34.93 Encounter for supervision of normal pregnancy, unspecified, third trimester (principal); Z3A.00 Weeks of gestation of pregnancy not specified
CPT/HCPCS: 36415; 85027; 86592; 86850; 86900; 86901

== ENCOUNTER 2021-12-08 14:42 | Outpatient (CLI) | payer OTHER, SELFPAY ==
[2021-12-08 15:05] LABS: Hematocrit 35.3 % (37.0-47.0); Hemoglobin 11.6 g/dL (12.0-15.0); Mean Corpuscular HGB Conc 32.9 g/dl (32-36); Mean Corpuscular Hemoglobin 31.6 pg (26-34); Mean Corpuscular Volume 96.2 fl (80-100); Mean Platelet Volume 10.3 fl (7.4-10.4); Platelet Count Result 229 k/mm3 (150-375); Red Blood Count 3.67 M/mm3 (4.2-5.4); Red Cell Distribution Width 12.5 % (11.5-14.5); White Blood Count 9.8 K/mm3 (4.5-10.0)
[2021-12-09 17:18] LABS: Rapid Plasma Reagin Non-Reactive (NonReactive)
== END 2021-12-08 14:43 | disposition home or self-care (01) ==
PROVIDERS: PCP Family Medicine; Visit Provider Obstetrics & Gynecology
DX: Z34.93 Encounter for supervision of normal pregnancy, unspecified, third trimester (principal); Z3A.00 Weeks of gestation of pregnancy not specified
CPT/HCPCS: 36415; 85027; 86592; 86850; 86900; 86901

== ENCOUNTER 2021-12-09 05:32 | Inpatient (IN) | payer OTHER, SELFPAY ==
--- NOTE | 2021-12-07 07:30 | PM.IMHP ---
H&P: HPI History of Present Illness Date/Time: 12/07/21 07:30 Chief Complaint: Term with previous section Narrative: This is a 36-year-old female at 39 weeks gestation for repeat section. She has had relatively unremarkable short of a problem with her teeth. Dates were good with an early ultrasound confirming dates PMFSH Past Medical History Medical History Crohn's disease Endometriosis History of anemia History of bulimia History of ovarian cyst History of pancreatitis History of rib fracture Hx of ulcerative colitis Pituitary macroadenoma Surgical History Surgical History History of appendectomy (~2004) History of cholecystectomy (~2004) Previous section (~2012) x2.2012, 2015 Family History Family History Father Family history of elevated blood lipids Family history of diabetes mellitus in first degree relative Hypertension Mother Family history of elevated blood lipids Family history of malignant neoplasm of cervix Family history of diabetes mellitus in first degree relative Sibling Family history of elevated blood lipids Family history of diabetes mellitus in first degree relative Grandparent Cerebrovascular accident Family history of coronary artery disease Family history of aortic aneurysm Other Family history of malignant neoplasm of ovary Social History Social History Smoking status: Never smoker Second hand tobacco smoke exposure: Yes Alcohol intake: never Substance use: never Gender identity (if verbalized by the patient): Female Spiritual care concerns: No Meds Home Medications and Allergies Home Medications Medication Instructions Recorded Confirmed Type erythromycin 500 mg tablet 500 mg PO Q12H 12/06/21 12/06/21 History prenat.vits,artem,[id number]-kvnlw tablet 12/06/21 History Allergies Allergy/AdvReac Type Severity Reaction Status Date / Time Cephalosporins Allergy Mild Hives Verified 12/06/21 15:43 adhesive tape Allergy Unknown Blister Verified 12/06/21 15:43 amoxicillin Allergy Unknown Hives Verified 12/06/21 15:43 cefaclor Allergy Unknown Hives Verified 12/06/21 15:43 Penicillins Allergy Unknown Hives Verified 12/06/21 15:43 Exam GI: Auscultation: normal bowel sounds : Speculum Exam - Vagina: normal appearance of the vagina Speculum Exam - Cervix: normal appearance of the cervix Bimanual exam- vagina & uterus: soft (Uterus soft and gravid) Assessment and Plan Assessment and plan (1) Term : Code(s): Z34.90 - Encounter for supervision of normal , unspecified, unspecified trimester Status: Acute (2) Previous section: Code(s): Z98.891 - History of uterine scar from previous surgery Status: Acute Plan Repeat low-transverse section
[2021-12-09] VITALS (64 sets, daily range): BP systolic 69–125; BP diastolic 43–81; PULSE 39–90; RESP 10–21; TEMP 36.1–36.8; O2SAT 97–100; BMI 26.5
--- NOTE | 2021-12-09 05:32 | LDADM ---
This patient, Katharine Ortega, was admitted to Labor/Delivery/Recovery 120 on 12/09/21 at 05:32. Plans for labor, pain management and were discussed with patient. Patient/family oriented to hospital policies and general routines including ID bracelet, bed and alarms, visiting hours, pain management, procedures, bathroom and other care routines, personal items, smoking policy, room service/diet and guest tray routines, security routines, and visiting hours. Patient/Family are encouraged to report perceived risks to care and to ask questions if they do not understand what they are told or what they should do. See OBIX for further documentation.
--- NOTE | 2021-12-09 06:32 | WPDANESEPPF ---
Anes - Initial Pre Proc Eval Procedure: Operation Date: 12/09/21 07:30 Proposed Procedures p Repeat Section - Ad Ferrell MD Date/Time: 12/09/21 06:32 Surgeon: Ad Ferrell MD Pre Op Diagnosis: Patient Data Age: 36 Gender: F Height: 1.6 m Weight: 68 kg Allergies Allergy/AdvReac Type Severity Reaction Status Date / Time Cephalosporins Allergy Mild Hives Verified 12/06/21 15:43 adhesive tape Allergy Unknown Blister Verified 12/06/21 15:43 amoxicillin Allergy Unknown Hives Verified 12/06/21 15:43 cefaclor Allergy Unknown Hives Verified 12/06/21 15:43 Penicillins Allergy Unknown Hives Verified 12/06/21 15:43 Home Medications Medication Instructions Recorded Confirmed Type erythromycin 500 mg tablet 500 mg PO Q12H 12/06/21 12/06/21 History prenat.vits,artem,vpx-wxvm-eargb tablet 12/06/21 History Patient hx anesthesia problems: none Family hx anesthesia problems: none Results Review: All pre-operative results and documents have been reviewed as part of the pre-operative evaluation. [facility] Past Medical History Medical History Crohn's disease Endometriosis History of anemia History of bulimia History of ovarian cyst History of pancreatitis History of rib fracture Hx of ulcerative colitis Pituitary macroadenoma Surgical History Surgical History History of appendectomy (~2004) History of cholecystectomy (~2004) Previous section (~2012) x2.2012, 2015 Family History Family History Father Family history of elevated blood lipids Family history of diabetes mellitus in first degree relative Hypertension Mother Family history of elevated blood lipids Family history of malignant neoplasm of cervix Family history of diabetes mellitus in first degree relative Sibling Family history of elevated blood lipids Family history of diabetes mellitus in first degree relative Grandparent Cerebrovascular accident Family history of coronary artery disease Family history of aortic aneurysm Other Family history of malignant neoplasm of ovary Social History Social History Smoking status: Never smoker Second hand tobacco smoke exposure: Yes Alcohol intake: never Substance use: never Gender identity (if verbalized by the patient): Female Spiritual care concerns: No Anes - Eval Final PreProcedure Day of Procedure 12/09/21 06:32 Patient weight: overweight Heart: regular rate and rhythm Lungs: clear to auscultation and normal air movement Airway: Mallampati scale class II Neurological: alert and oriented Last oral intake: >/= 8 hours ASA classification: III Emergent: no Anesthetic plan: proceed Anesthesia type and monitoring: regional spinal and standard monitoring Results Review: All pre-operative results and documents have been reviewed as part of the pre-operative evaluation. Informed Consent: The patient's anesthetic plan and its attendant risks and benefits were discussed with the patient/family/POA. Questions were solicited and answers provided to the satisfaction of the patient/family/POA.
[2021-12-09] MEDS: LACTATED RINGERS 1,000 ML 125 ML IV CONT (06:38)
--- NOTE | 2021-12-09 07:14 | WPDHPUPDATE1 ---
History and Physical Update Update Date/Time: 12/09/21 07:14 History and Physical has been reviewed, including an updated exam of the patient. There are NO changes in the patient's condition. Risks, benefits, and alternatives have been discussed and questions answered. Patient agrees to proceed with procedure.
[2021-12-09] MEDS: CLINDAMYCIN 900 MG/D5W 50 ML 900 MG/50 ML PIGGYBACK 50 MG IVPB (07:36)
--- NOTE | 2021-12-09 08:23 | P.OP_ITS ---
Procedure Note - Detailed Date of Procedure 12/09/21 Pre-op Diagnosis Post-op Diagnosis Same Procedure Performed Low-transverse section Surgeon Ad Ferrell MD Anesthesia Spinal Indications 36-year-old 3 para 2 admitted at term for repeat low- transverse section with 2 previous C-sections Findings viable female with excellent cry normal-appearing uterus tubes and ovaries Description of Procedure patient is prepped and draped in the normal sterile fashion placed in the supine position. Excellent spinal anesthetic the abdomen is entered in Pfannenstiel fashion progressive layers to the fascia. Fascia was incised midline upward outward fashion bilaterally. Underlying muscles sharply dissected broad peritoneal by Alee clamps. The this was brought superiorly and inferiorly the dome of the bladder. Bladder blade plate placed a bladder blade flap formed, and a bladder blade returned. A low transverse incision made head delivered in the JUNE position. Anterior posterior shoulder delivered spontaneously. Cord times and cut placed in the warmer. Excellent cry was placenta was then delivered manually. Uterus delivered from the abdomen. After assuring no membranes or debris remained in the uterus, the uterus was closed with continuous running locking 0 Vicryl from lateral edge to lateral edge. This was followed by 2nd imbricating running locking 0 Vicryl from lateral edge to lateral edge. Hemostasis was assured. Ovaries and tubes appeared within normal limits. The uterus returned to the abdomen. The incision on the uterus inspected 1 last time and noted be hemostatic. The laps removed and accounted for. The fascia closed with continuous running 0 Vicryl from lateral edge to midline bilaterally. Irrigation subcutaneous layer and the skin closed with 4-0 Monocryl and glue. The patient was taken to recovery. All sponge, needle, instrument counts were correct. There were no immediate complications EBL was 450 Estimated Blood Loss 450 Drains No Packing No Pathology None sent Complications No immediate complications Condition Stable Disposition Floor
[2021-12-09] MEDS: MORPHINE SULFATE INJ (*CRX) 10 MG/ML AMP 2 MG IV PUSH ×6 (09:08→11:35)
[2021-12-09] MEDS: OXYTOCIN 30 UNITS/NS 500 ML 30 UNITS/500 ML BAG 125 UNITS IV CONT (09:30)
--- NOTE | 2021-12-09 11:00 | SUR.PHASEI ---
Recovery completed. PP room not ready. Awaiting return call for PP RN. Pt resting, spouse bedside, infant in crib sleeping. Denies any needs at this time. Call light within reach.
--- NOTE | 2021-12-09 11:20 | SUR.PHASEI ---
Report called to Imani Arias RN. Pt going to room 282 for pp care.
--- NOTE | 2021-12-09 11:35 | SUR.PHASEI ---
Pt requesting one more dose of IV pain meds prior to moving to PP room.
--- NOTE | 2021-12-09 11:45 | SUR.PHASEI ---
Pt recovery completed, moved to PP room at this time with belongings, charts and family. Bedside update given to Imani Arias RN.
[2021-12-09] MEDS: DEXTROSE 5%/0.45% SOD CHL 1,000 ML 125 ML IV CONT (12:43)
--- NOTE | 2021-12-09 12:48 | OBPPTRN ---
1148-Patient transferred to post room #282 via stretcher. Support person present. Oriented to unit, room, information board, rooming in, admission packet and security measures. Patient verbalizes understanding.
--- NOTE | 2021-12-09 13:30 | PC.NURSE ---
[id number] Introductions were made, then consulted with patient to assess needs related to . G 3 P 3 Mother led the conversation with her experience feeding her so far. Mother works well with her . Mother demonstrated understanding of the benefits of skin to skin (unwrapping infant and placing vertically on her chest), responsive feeding and how to watch for early feeding signs, frequency of feeding on demand about every 8-12 times in 24 hours (every 2-3 hours), milk production, duration of feeding, signs of adequate intake/output and how to record on the feeding sheet. Reviewed positioning and ear, shoulder, hip alignment, supporting the breast, asymmetrical latch (off-center), and leading with the chin with a big open side gape. Mother independently latched optimally to the right breast in cradle position. Education given to mother of how to visualize suck/swallow ratios and drinking at the breast. was able to maintain latch without discomfort to mother. Nipple care reviewed with optimal latch and good positioning. Reviewed good handwashing when or touching the breast/nipples to prevent infection. Resources used to facilitate learning were used with the mom and baby guide. Mother voiced understanding of responsive feedings, stimulating with skin to skin, hand expressed colostrum, touch, talking to infant to encourage if it has been 2 -3 hours since the start of the last , to call if does not latch or there is discomfort with . Reported to the primary RN.
[2021-12-09] MEDS: HYDROcodone/acetaminophen (*CRX) 10-325 MG TABLET 1 TAB PO ×3 (13:48→21:53)
[2021-12-09] MEDS: SIMETHICONE 80 MG TAB.CHEW PO ×3 (13:49→23:52)
--- NOTE | 2021-12-09 15:01 | PC.NURSE ---
1345-Patient stated she cannot take Ibuprofen due to her Crohn's dz and ulcerative colitis.
[2021-12-09] MEDS: DOCUSATE SODIUM 100 MG CAPSULE PO (17:32)
[2021-12-10] MEDS: SIMETHICONE 80 MG TAB.CHEW PO ×5 (01:52→20:39)
[2021-12-10] MEDS: HYDROcodone/acetaminophen (*CRX) 10-325 MG TABLET 1 TAB PO ×6 (01:52→20:39)
[2021-12-10 04:45] VITALS: BP 110/47; PULSE 76; RESP 18; TEMP 36.3
[2021-12-10 05:15] LABS: Basophils Absolute Auto 0.1 K/mm3 (0.0-0.1); Basophils Percent Auto 0.3 % (0.2-1.2); Eosinophils Absolute Auto 0.2 K/mm3 (0-0.3); Immature Granulocyte Absolute 0.17 K/mm3 (0.00-0.031); Lymphocytes Absolute Auto 1.44 K/mm3 (0.9-3.2); Lymphocytes Percent Auto 8.7 % (18.3-44.2); Mean Corpuscular HGB Conc 34.3 g/dl (32-36); Mean Corpuscular Hemoglobin 31.7 pg (26-34); Mean Corpuscular Volume 92.6 fl (80-100); Mean Platelet Volume 10.5 fl (7.4-10.4); Monocytes Absolute Auto 0.8 K/mm3 (0.1-0.6); Neutrophils Absolute Auto 13.8 K/mm3 (1.3-6.7); Platelet Count Result 249 k/mm3 (150-375); Red Blood Count 3.78 M/mm3 (4.2-5.4); Red Cell Distribution Width 12.6 % (11.5-14.5); White Blood Count 16.5 K/mm3 (4.5-10.0)
--- NOTE | 2021-12-10 06:36 | PM.OBPNVD ---
OB - PN: Subj Subjective Date/time seen: 12/10/21 06:36 Patient comments: no complaints and pain well controlled baby status: doing well OB - PN: Obj Data Labs CBC & Chem 7: 12/10/21 04:55 Labs: Laboratory Results - last 24 hr 12/10/21 04:55 WBC 16.5 H RBC 3.78 L Hgb 12.0 Hct 35.0 L MCV 92.6 MCH 31.7 MCHC 34.3 RDW 12.6 Plt Count 249 MPV 10.5 H Immature Gran % (Auto) 1.0 H Neut % (Auto) 84.0 H Lymph % (Auto) 8.7 L [place] % (Auto) 5.0 Eos % (Auto) 1.0 Baso % (Auto) 0.3 Lymph # (Auto) 1.44 [place] # (Auto) 0.8 H Eos # (Auto) 0.2 Baso # (Auto) 0.1 Abs Immat Gran (auto) 0.17 H Absolute Neuts (auto) 13.8 H Absolute Nucleated RBC 0.0 Nucleated RBC % 0.0 OB - PN A/P Assessment and Plan (1) Postoperative pain: Code(s): G89.18 - Other acute postprocedural pain Status: Acute (2) Previous section: Code(s): Z98.891 - History of uterine scar from previous surgery Status: Acute (3) Term : Code(s): Z34.90 - Encounter for supervision of normal , unspecified, unspecified trimester Status: Acute Plan day: 1 Plan: routine care Time Spent With Patient Time: Total time spent is greater than 50% in coordination of care (as documented) at patient's floor/unit and/or counseling patient: Time with patient: less than 15 minutes
--- NOTE | 2021-12-10 07:36 | WPDANLDNPN2 ---
Anes-Prog Note L&D-Neuraxial Date/Time: 12/10/21 07:36 Neuraxial medications: intrathecal PF morphine Opiod-related complaints: none Patient feedback: Patient satisfied with post-operative pain management.
--- NOTE | 2021-12-10 07:37 | P.PNAN_ITS ---
Anes - Prog Note Post-Op Date/Time: 12/10/21 07:37 Cardiovascular status: normal Respiratory status: normal Airway patency: baseline Mental status: baseline Post-Op hydration status: normal Vital Signs: Last Vital Signs Temp 36.3 C L 12/10/21 04:45 Pulse 76 12/10/21 04:45 Resp 18 12/10/21 04:45 BP 110/47 L 12/10/21 04:45 Pulse Ox 99 12/09/21 20:00 O2 Del Method Room Air 12/09/21 12:30 Pain Score (VAS): 4 I/O: Intake & Output 12/09/21 12/09/21 12/10/21 15:59 23:59 07:59 Intake Total 910 3128 800 Output Total 2427 3900 1000 Balance -1511 -772 -200 Laboratory Tests 12/10/21 04:55 12/10/21 04:55 WBC 16.5 H RBC 3.78 L Hgb 12.0 Hct 35.0 L MCV 92.6 MCH 31.7 MCHC 34.3 RDW 12.6 Plt Count 249 MPV 10.5 H Immature Gran % (Auto) 1.0 H Neut % (Auto) 84.0 H Lymph % (Auto) 8.7 L [place] % (Auto) 5.0 Eos % (Auto) 1.0 Baso % (Auto) 0.3 Lymph # (Auto) 1.44 [place] # (Auto) 0.8 H Eos # (Auto) 0.2 Baso # (Auto) 0.1 Abs Immat Gran (auto) 0.17 H Absolute Neuts (auto) 13.8 H Absolute Nucleated RBC 0.0 Nucleated RBC % 0.0 Post-procedural complaints: other (patient complaining of shoulder and mild back pain. Examined back and noted no bruising or swelling. Discussed with patient normal to have aching back after spinal anesthetic and c/s) Patient Feedback: Patient satisfied with anesthetic care.
[2021-12-10] MEDS: MULTIVIT/MIN/PREN/FOL AC/IRON TABLET 1 TAB PO (07:54)
[2021-12-10] MEDS: DOCUSATE SODIUM 100 MG CAPSULE PO ×2 (07:55→16:57)
[2021-12-10] MEDS: TETANUS,DIPHTHERIA,AC PERTUSSIS ADULT (0.5 ML) BOOSTRIX IM (07:57)
[2021-12-10 08:40] VITALS: BP 98/41; PULSE 73; RESP 18; TEMP 36.9; O2SAT 99
[2021-12-10 20:40] VITALS: BP 119/69; PULSE 77; RESP 18; TEMP 36.8
[2021-12-11] MEDS: SIMETHICONE 80 MG TAB.CHEW PO ×4 (00:30→09:37)
[2021-12-11] MEDS: HYDROcodone/acetaminophen (*CRX) 10-325 MG TABLET 1 TAB PO ×4 (00:30→09:37)
[2021-12-11] MEDS: MULTIVIT/MIN/PREN/FOL AC/IRON TABLET 1 TAB PO (06:39)
[2021-12-11] MEDS: DOCUSATE SODIUM 100 MG CAPSULE PO (06:39)
[2021-12-11 07:00] VITALS: BP 110/84; PULSE 111; RESP 18; TEMP 36.9; O2SAT 100
--- NOTE | 2021-12-11 08:17 | PM.DS ---
DS: Admitting Diagnosis Discharge Date 12/11/2021 Admitting Diagnosis term with previous section DS: Discharge Diagnosis Discharge Diagnosis (1) Previous section: Code(s): Z98.891 - History of uterine scar from previous surgery Status: Acute (2) Term : Code(s): Z34.90 - Encounter for supervision of normal , unspecified, unspecified trimester Status: Acute DS: Summary Hospital Course Hospital Course: patient was admitted for repeat section. Her hospital course was unremarkable over the next 48hours. She remained afebrile. She was up, voiding without difficulty, ambulating, generally without complaints. Time Spent with Patient Time attestation: Total time spent providing and/or coordinating discharge services: Discharge Plan Discharge Attending physician on discharge: Ad Osorio Discharging Clinician: Ad Osorio Patient Disposition: Home, Self-Care Activity: may shower, no straining, may drive after 2 weeks and pelvic rest Diet: heart healthy Wound Care Instructions: follow printed instructions Patient Instructions: Antibiotic Form Stand Alone Forms: General Discharge Information Follow-up/Referrals: Ad Osorio MD [Physician] - Discharge Medications: New hydrocodone-acetaminophen 5-325 mg tablet 1 tablet PO Q4H PRN (Reason: pain) Qty: 30 0RF No Action #2 Tablet 1 tablet PO DAILY erythromycin 500 mg Tablet 500 mg PO Q12H Date of admission: 12/09/21 05:32 Primary Care Provider: Lemuel Westfall Admitting Provider: Ad Osorio Attending physician on admission: Ad Osorio Condition: Stable
== END 2021-12-11 11:25 | disposition home or self-care (01) | DRG 540 ==
LOC: ANHLDR 07:16 → ANHOB2 12:15
PROVIDERS: Admitting Provider Obstetrics & Gynecology; PCP Family Medicine; Visit Provider Obstetrics & Gynecology
PROC: 10D00Z1 Extraction of Products of Conception, Low, Open Approach (ICD-10-PCS; CPT 59514; principal; 2021-12-09 07:30)
DX: O34.211 Maternal care for low transverse scar from previous cesarean delivery (principal); Z37.0 Single live birth; Z3A.39 39 weeks gestation of pregnancy; O69.81X0 Labor and delivery complicated by cord around neck, without compression, not applicable or unspecified
CPT/HCPCS: 36415; 85025; 90715; A9270; J0131; J2270; J2274; J2405; J2590; J7120

== ENCOUNTER 2023-10-04 13:21 | Outpatient (CLI) | payer OTHER, SELFPAY ==
[2023-10-04 18:37] LABS: Basophils Absolute Auto 0.1 K/mm3 (0.0-0.1); Basophils Percent Auto 0.5 % (0.2-1.2); Eosinophils Absolute Auto 0.1 K/mm3 (0-0.3); Hematocrit 44.8 % (37.0-47.0); Hemoglobin 14.7 g/dL (12.0-15.0); Immature Granulocyte Absolute 0.04 K/mm3 (0.00-0.031); Immature Granulocyte Percent A 0.3 % (0-0.5); Lymphocytes Absolute Auto 2.64 K/mm3 (0.9-3.2); Mean Corpuscular HGB Conc 32.8 g/dl (32-36); Mean Corpuscular Hemoglobin 31.4 pg (26-34); Mean Corpuscular Volume 95.7 fl (80-100); Mean Platelet Volume 9.5 fl (7.4-10.4); Monocytes Absolute Auto 0.7 K/mm3 (0.1-0.6); Monocytes Percent Auto 5.6 % (2.6-8.5); Neutrophils Percent Auto 71.6 % (45.5-73.1); Platelet Count Result 349 k/mm3 (150-375); Red Blood Count 4.68 M/mm3 (4.2-5.4); Red Cell Distribution Width 12.5 % (11.5-14.5); White Blood Count 12.6 K/mm3 (4.5-10.0)
[2023-10-04 19:15] LABS: Alanine Aminotransferase 14 U/L (6-35); Albumin Level 4.3 g/dL (3.5-5.1); Alkaline Phosphatase 55 U/L (38-126); Anion Gap 5 mmol/L (4-12); Aspartate Amino Transferase 24 U/L (14-36); Bilirubin,Total 0.7 mg/dL (0.2-1.3); Blood Urea Nitrogen 10 mg/dL (7-17); Calcium 9.1 mg/dL (8.4-10.2); Carbon Dioxide 26 mmol/L (22-30); Chloride 106 mmol/L (98-107); Cholesterol 133 mg/dL (0-200); Estimated Glomerular Filt Rate > 60; Glucose 102 mg/dL (65-110); HDL Direct 63 mg/dL; Potassium 4.1 mmol/L (3.4-5.0); Sodium 137 mmol/L (137-145); Triglycerides 61 mg/dL (<150)
[2023-10-04 19:27] LABS: LDL Cholesterol Direct 69 mg/dL
[2023-10-04 19:40] LABS: Thyroid Stimulating Hormone 0.658 uIU/mL (0.465-4.680)
[2023-10-04 20:03] LABS: Vitamin D 25 Hydroxy 21.7 ng/mL
[2023-10-04 22:33] LABS: Hemoglobin A1C 4.9 % (<5.7)
== END 2023-10-04 13:22 | disposition home or self-care (01) ==
LOC: ANHGOSHLAB 13:22
PROVIDERS: PCP Nurse Practitioner Family; Visit Provider Nurse Practitioner Family
DX: Z00.00 Encounter for general adult medical examination without abnormal findings (principal); B96.89 Other specified bacterial agents as the cause of diseases classified elsewhere; J01.90 Acute sinusitis, unspecified; E78.5 Hyperlipidemia, unspecified; Z13.29 Encounter for screening for other suspected endocrine disorder; E55.9 Vitamin D deficiency, unspecified; R73.03 Prediabetes
CPT/HCPCS: 36415; 80053; 80061; 82306; 83036; 84443; 85025

== ENCOUNTER 2024-03-03 17:58 | Emergency (ER) | payer OTHER, SELFPAY ==
[2024-03-03 18:06] VITALS: BP 137/62; PULSE 92; RESP 20; TEMP 37.1; O2SAT 100
--- NOTE | 2024-03-03 18:32 | ECG_ITS ---
Test Date: 2024-03-03 18:45:27 Measurements Intervals [place] Rate: 72 P: 16 DC: 119 QRS: 76 QRSD: 78 T: 51 QT: 372 QTc: 408 Interpretive Statements SINUS RHYTHM WITH SHORT DC INTERVAL BASELINE WANDER- V4-V5 BORDERLINE ECG No previous ECG available for comparison Electronically Signed On 03-03-2024 20:16:00 CDT by Tacos Acuña D.O.
--- NOTE | 2024-03-03 18:42 | ED.CHESTPAIN ---
HPI - Chest Pain General Chief Complaint: Chest Pain Stated Complaint: Left Shoulder Pain Time Seen by Provider: 03/03/24 18:44 Source: patient Mode of arrival: ambulatory Limitations: no limitations History of Present Illness MD complaint: other (axillary pain) Related Data Home Medications Medication Instructions Recorded Confirmed prenat.vits,ratem,[id number] 1 tablet PO DAILY 12/06/21 12/09/21 Allergies Allergy/AdvReac Type Severity Reaction Status Date / Time Cephalosporins Allergy Mild Hives Verified 03/03/24 18:33 adhesive tape Allergy Unknown Blister Verified 03/03/24 18:33 amoxicillin Allergy Unknown Hives Verified 03/03/24 18:33 cefaclor Allergy Unknown Hives Verified 03/03/24 18:33 Penicillins Allergy Unknown Hives Verified 03/03/24 18:33 Review of Systems Review of Systems: CONSTITUTIONAL: Denies malaise, chills, sweats, or fever. EYES: Denies visual changes, redness, or discharge. ENT: Denies rhinorrhea, congestion, sinus pain, otalgia or sore throat. CARDIOVASCULAR: Denies chest pain, palpitations, or edema. RESPIRATORY: Denies cough or dyspnea. GASTROINTESTINAL: Denies abdominal pain, nausea, vomiting, diarrhea, bloody, or mucous stools. GENITOURINARY: Denies dysuria or hematuria. SKIN: Denies rash or itching. MUSCULOSKELETAL: Denies back pain, joint pain, or myalgia. NEUROLOGIC: Denies numbness, weakness, or headache. PSYCHIATRIC: Denies anxiety or depression. All systems reviewed & are unremarkable except as noted in HPI and below PMFSH Past Medical History Medical History (Updated 03/03/24 @ 18:54 by Lachelle Díaz NP) Acute bacterial sinusitis Crohn's disease Endometriosis History of anemia History of bulimia History of ovarian cyst History of pancreatitis History of rib fracture Hx of ulcerative colitis Pituitary macroadenoma Surgical History Surgical History History of appendectomy (~2004) History of cholecystectomy (~2004) Previous section (~2012) x2.2012, 2015 Family History Family History Father Family history of elevated blood lipids Family history of diabetes mellitus in first degree relative Hypertension Mother Family history of elevated blood lipids Family history of malignant neoplasm of cervix Family history of diabetes mellitus in first degree relative Sibling Family history of elevated blood lipids Family history of diabetes mellitus in first degree relative Grandparent Cerebrovascular accident Family history of coronary artery disease Family history of aortic aneurysm Other Family history of malignant neoplasm of ovary Social History Social History Smoking status: Never smoker Second hand tobacco smoke exposure: Yes Alcohol intake: never Substance use: never Gender identity (if verbalized by the patient): Female Spiritual care concerns: No Comments At time of signature, agree with nursing past medical, surgical, social and family history. There is no relevant family history pertinent to the presenting complaint Exam Narrative: GENERAL: Well-appearing, well-nourished, and in no acute distress. HEAD: Normocephalic, atraumatic. EYES: PERRLA, sclera clear, and EOMI. No nystagmus. ENT: Nares clear, turbinates pink, no rhinorrhea or epistaxis. Mucous membranes moist. TM pearly cardoso with sharp light reflex bilaterally; no tragal tenderness. Oropharynx without erythema or lesions. Tonsils not enlarged and without exudate. NECK: Supple. No lymphadenopathy. No jugular venous distension, thyromegaly, or carotid bruits. Carotids were easily palpable bilaterally. CHEST: No respiratory distress. Clear to auscultation. No bony deformities, no asymmetry. Speaks in full sentences. HEART: Regular rate and rhythm. No murmur heard. Normal peripheral pulses. ABDOMEN: Soft, nontender
== END 2024-03-03 19:14 | disposition home or self-care (01) ==
PROVIDERS: Emergency Provider Nurse Practitioner; PCP Nurse Practitioner Family
DX: M79.622 Pain in left upper arm (principal); K50.90 Crohn's disease, unspecified, without complications; N80.9 Endometriosis, unspecified
CPT/HCPCS: 93005; 99213; G0463

== ENCOUNTER 2024-03-07 23:56 | Emergency (ER) | payer OTHER, SELFPAY ==
--- NOTE | ~2024-03-07 | XR_ITS ---
EXAMINATION: XR chest 1V portable DATE: 03/08/2024 00:38 INDICATION: Left-sided chest pain TECHNIQUE: frontal view of the chest was obtained. COMPARISON: Chest radiograph dated 11/01/2011 FINDINGS: The lungs remain clear with no focal airspace opacities, pulmonary edema, pleural effusion or pneumot horax. The cardiomediastinal silhouette is normal. Visualized bones and soft tissues are unremarkable . IMPRESSION: 1. Normal chest radiograph. Reviewed, dictated and finalized at location A. IMPRESSION: 1. Normal chest radiograph.
[2024-03-08 00:01] VITALS: BP 135/67; PULSE 116; RESP 16; O2SAT 100
--- NOTE | 2024-03-08 00:07 | ECG_ITS ---
Test Date: 2024-03-08 00:07:50 Measurements Intervals [place] Rate: 95 P: 41 MI: 120 QRS: 75 QRSD: 76 T: 52 QT: 330 QTc: 417 Interpretive Statements SINUS RHYTHM WITH SINUS ARRHYTHMIA BASELINE ARTIFACT- I, II, III, AVR, AVL, AVF NORMAL ECG Compared to ECG 03/03/2024 18:45:27 NO SIGNIFICANT CHANGE Electronically Signed On 03-08-2024 07:58:30 CDT by Tacos Acuña D.O.
[2024-03-08 00:17] VITALS: O2SAT 100
[2024-03-08 00:22] LABS: Basophils Percent Auto 0.5 % (0.2-1.2); Eosinophils Absolute Auto 0.2 K/mm3 (0-0.3); Eosinophils Percent Auto 2.1 % (0-4.4); Hematocrit 40.4 % (37.0-47.0); Hemoglobin 13.7 g/dL (12.0-15.0); Immature Granulocyte Absolute 0.02 K/mm3 (0.00-0.031); Immature Granulocyte Percent A 0.3 % (0-0.5); Lymphocytes Absolute Auto 2.64 K/mm3 (0.9-3.2); Lymphocytes Percent Auto 35.1 % (18.3-44.2); Mean Corpuscular HGB Conc 33.9 g/dl (32-36); Mean Corpuscular Hemoglobin 32.3 pg (26-34); Mean Corpuscular Volume 95.3 fl (80-100); Mean Platelet Volume 8.8 fl (7.4-10.4); Monocytes Absolute Auto 0.5 K/mm3 (0.1-0.6); Neutrophils Absolute Auto 4.2 K/mm3 (1.3-6.7); Platelet Count Result 355 k/mm3 (150-375); Red Blood Count 4.24 M/mm3 (4.2-5.4); Red Cell Distribution Width 13.2 % (11.5-14.5); White Blood Count 7.5 K/mm3 (4.5-10.0)
[2024-03-08] MEDS: ASPIRIN 81 MG CHEWABLE TABLET 324 MG PO (00:25)
[2024-03-08 00:32] LABS: Alanine Aminotransferase 14 U/L (6-35); Albumin Level 3.9 g/dL (3.5-5.1); Alkaline Phosphatase 52 U/L (38-126); Anion Gap 8 mmol/L (4-12); Aspartate Amino Transferase 19 U/L (14-36); Bilirubin,Total 0.2 mg/dL (0.2-1.3); Blood Urea Nitrogen 9 mg/dL (7-17); Calcium 8.8 mg/dL (8.4-10.2); Carbon Dioxide 22 mmol/L (22-30); Chloride 106 mmol/L (98-107); Estimated CRCL calculation 71 ml/min; Estimated Glomerular Filt Rate > 60; Glucose 122 mg/dL (65-110); Lipase 175 U/L (23-300); Potassium 3.9 mmol/L (3.4-5.0); Prothrombin Time 13.6 Seconds (11.1-14.7); Sodium 136 mmol/L (137-145)
[2024-03-08 00:33] LABS: Partial Thromboplastin Time 25.8 Seconds (22.3-36.8)
[2024-03-08 00:38] LABS: D Dimer < 0.27 ug/mL (<0.48)
[2024-03-08 00:44] LABS: Troponin I < 0.012 ng/mL (0.000-0.034)
[2024-03-08] MEDS: LACTATED RINGERS 1,000 ML 999 ML IV CONT (00:55)
[2024-03-08 01:00] LABS: BEDSIDEPREGUCG Negative (Negative)
[2024-03-08] MEDS: KETOROLAC 15 MG/ML VIAL (*BKC) 10 MG IV PUSH (01:01)
[2024-03-08 01:19] LABS: Influenza A QL RT-PCR Negative (Negative); Influenza B QL RT-PCR Negative (Negative); RSV RNA, RT-PCR Negative (Negative); SARS-CoV-2 RNA PCR Negative (Negative)
--- NOTE | 2024-03-08 01:24 | PCRCNOTE ---
Provider said to only give 2.5mg of Albuterol and .5mg of Ipratropium Donal[place]. Provider will change order.
[2024-03-08 01:35] VITALS: PULSE 83; RESP 22
[2024-03-08] MEDS: IPRATROPIUM 0.5 MG/ALBUTEROL SULFATE 2.5 MG AMPUL.NEB 3 ML INHALATION (01:35)
--- NOTE | 2024-03-08 02:24 | ED.CHESTPAIN ---
HPI - Chest Pain General Chief Complaint: Chest Pain Stated Complaint: Chest pain Time Seen by Provider: 03/08/24 00:03 History of Present Illness HPI narrative: Patient with chest pain for the past week; started a some left-sided shoulder/ neck discomfort, and then feels like it goes down to her chest and stays there. No shortness of breath. No lower extremity swelling or pain however she does state that she has family history of DVTs and at some point thinks her leg was swollen Related Data Home Medications Medication Instructions Recorded Confirmed prenat.vits,artem,[id number] 1 tablet PO DAILY 12/06/21 12/09/21 Allergies Allergy/AdvReac Type Severity Reaction Status Date / Time Cephalosporins Allergy Mild Hives Verified 03/08/24 00:13 adhesive tape Allergy Unknown Blister Verified 03/08/24 00:13 amoxicillin Allergy Unknown Hives Verified 03/08/24 00:13 cefaclor Allergy Unknown Hives Verified 03/08/24 00:13 Penicillins Allergy Unknown Hives Verified 03/08/24 00:13 PMF Past Medical History Medical History (Updated 03/08/24 @ 03:42 by Silvia Jo MD) Acute bacterial sinusitis Crohn's disease Endometriosis History of anemia History of bulimia History of ovarian cyst History of pancreatitis History of rib fracture Hx of ulcerative colitis Pituitary macroadenoma Surgical History Surgical History History of appendectomy (~2004) History of cholecystectomy (~2004) Previous section (~2012) x2.2012, 2015 Family History Family History Father Family history of elevated blood lipids Family history of diabetes mellitus in first degree relative Hypertension Mother Family history of elevated blood lipids Family history of malignant neoplasm of cervix Family history of diabetes mellitus in first degree relative Sibling Family history of elevated blood lipids Family history of diabetes mellitus in first degree relative Grandparent Cerebrovascular accident Family history of coronary artery disease Family history of aortic aneurysm Other Family history of malignant neoplasm of ovary Social History Social History Smoking status: Never smoker Second hand tobacco smoke exposure: Yes Alcohol intake: never Substance use: never Gender identity (if verbalized by the patient): Female Spiritual care concerns: No Exam Narrative: EXAMINATION OF ORGAN SYSTEMS/BODY AREAS: Constitutional: Vital signs per nursing GENERAL:[No acute distress, non-toxic appearing.] HEAD: Normal with no signs of head trauma. EYES: EOMI, conjunctiva normal ENT: Hearing grossly intact LUNGS: Nonlabored breathing. clear to auscultation bilaterally with slightly prolonged of end expiratory phase HEART: initially tachycardic ABD: [Soft], [nontender to palpation] EXT: Normal range of motion, No lower extremity swelling or tenderness SKIN: [No rashes or lesions.] NEURO: [Alert and oriented x 3. No gross focal sensory or strength deficits.] PSYCH: Normal affect Course Vital Signs Vital signs: Vital Signs Pulse Rate 116 H 03/08/24 00:01 Respiratory Rate 16 03/08/24 00:01 Blood Pressure 135/67 03/08/24 00:01 Pulse Oximetry 100 03/08/24 00:01 Oxygen Delivery Room Air 03/08/24 00:01 Pulse Rate 83 03/08/24 03:51 Respiratory Rate 16 03/08/24 03:51 Blood Pressure 122/76 03/08/24 03:51 Pulse Oximetry 100 03/08/24 03:51 Oxygen Delivery Room Air 03/08/24 00:17 MDM - Chest Pain MDM Narrative Medical decision making narrative: patient presents here with left shoulder pain that goes her to left chest, worse with certain movement of her arms, no recent trauma. Chest x-ray on my independent interpretation does not show any obvious consolidation or pneumothorax. EKG on my independent interpretati
[2024-03-08 03:04] VITALS: BP 119/73; PULSE 80; RESP 15; O2SAT 100
[2024-03-08 03:27] LABS: Troponin I < 0.012 ng/mL (0.000-0.034)
[2024-03-08 03:51] VITALS: BP 122/76; PULSE 83; RESP 16; O2SAT 100
== END 2024-03-08 03:52 | disposition home or self-care (01) ==
PROVIDERS: Emergency Provider Emergency Medicine; PCP Nurse Practitioner Family
DX: M25.512 Pain in left shoulder (principal); R07.89 Other chest pain; D35.2 Benign neoplasm of pituitary gland; N80.9 Endometriosis, unspecified; K51.90 Ulcerative colitis, unspecified, without complications; Z90.49 Acquired absence of other specified parts of digestive tract
CPT/HCPCS: 36415; 71045; 80053; 81025; 83690; 84484; 85025; 85380; 85610; 85730; 87637; 93005; 94640; 96361; 96374; 99284; A9270; J1885; J7120

== ENCOUNTER 2024-03-11 15:39 | Outpatient (CLI) | payer OTHER, SELFPAY ==
--- NOTE | ~2024-03-11 | XR_ITS ---
XR cervical spine 4-5V Ordering provider: Lemuel Westfall MD History: . M54.2 - Cervicalgia CHRONIC PAIN . Comparison: None. FINDINGS: VERTEBRAL BODIES: Normal height and alignment. No visible fracture or subluxation. The dens is intact . DISK SPACES: Well maintained. PARASPINOUS SOFT TISSUES: No prevertebral soft tissue swelling. IMPRESSION: No acute osseous abnormality cervical spine. Reviewed, dictated and finalized at location A.
== END 2024-03-11 15:40 | disposition home or self-care (01) ==
LOC: ANHIMG 15:41
PROVIDERS: PCP Family Medicine; Visit Provider Family Medicine
DX: M54.2 Cervicalgia (principal)
CPT/HCPCS: 72050

== ENCOUNTER 2024-04-08 12:28 | Outpatient (CLI) | payer OTHER, SELFPAY ==
--- NOTE | ~2024-04-08 | MR_ITS ---
EXAMINATION: MR brain/brain stem wo/w con DATE: 04/08/2024 13:39 INDICATION: Benign neoplasm of pituitary gland. TECHNIQUE: Magnetic resonance imaging (MRI) of the brain and brainstem was performed without and with 10 mL MultiHance intravenous contrast. COMPARISON: Brain MRI 01/21/2021, maxillofacial CT 12/27/2020 FINDINGS: There are scattered areas of nonspecific increased T2-weighted signal intensity in the cere bral white matter, which is within normal limits for the patient's age. There is no intracranial hemo rrhage. There is a 1.6 x 0.9 x 1.8 cm suprasellar mass with dural tail that measured 1.4 x 0.7 x 1.2 cm on 01/21/21. The mass is separate from the pituitary. There is mass effect on the optic chiasm. The re is leftward displacement of the infundibulum. The ventricles are normal in size. There is mild muc osal thickening in the paranasal sinuses. The orbits are normal. The mastoid air cells are normal. IMPRESSION: 1. 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 Reviewed, dictated and finalized at location A. IMPRESSION: 1. 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
== END 2024-04-08 12:29 | disposition home or self-care (01) ==
PROVIDERS: PCP Family Medicine; Visit Provider Family Medicine
DX: D35.2 Benign neoplasm of pituitary gland (principal)
CPT/HCPCS: 70553; A9577